=== PATIENT | male | born 1995 ===

== ENCOUNTER 2017-10-21 01:22 | Emergency (ER) | payer SELFPAY ==
[~2017-10-21] VITALS: Ht 180.3 cm; Wt 125.0 kg
[2017-10-21 01:43] VITALS: BP 161/91; PULSE 95; RESP 14; TEMP 98.7; O2SAT 98
[2017-10-21] MEDS ORDERED: HYDR12.57 PO (01:58)
[2017-10-21] MEDS ORDERED: NIFE10CA PO (01:58)
[2017-10-21] MEDS ORDERED: LOSA25TA PO (01:58)
--- NOTE | 2017-10-21 01:59 | PD ---
HPI Chief Complaint: Skin Problem Time Seen by Provider: 01:51 Travel History International Travel<30 days: No Contact w/Intl Traveler<30days: No Traveled to known affect area: No History of Present Illness HPI 21-year-old male presents to emergency department for evaluation of the superficial lacerations sustained to the distal right second digit yesterday. The area is not bleeding. There is no pain. He is curious as to how he should take care of this. He has no other symptoms to report. History Past Medical Histgory Medical History: Denies Significant Hx Past Surgical History Surgical History: No Previous Surgery Social History Alcohol Use: Yes Tobacco Use: No Allergies-Medications (Allergen,Severity, Reaction): Coded Allergies: No Known Allergies (Unverified , 10/21/17) Reported Meds & Prescriptions Reported Meds & Active Scripts Active Reported Nifedipine 10 Mg Cap 10 Mg PO QID Losartan (Losartan Potassium) 25 Mg Tab 12.5 Mg PO DAILY Hydrochlorothiazide 12.5 Mg Cap 12.5 Mg PO BID Review of Systems Except as stated in HPI: all other systems reviewed are Neg Physical Exam Narrative GENERAL: Well-nourished, well-developed male patient in no acute distress. SKIN: Focused skin assessment warm/dry. Less than 1 cm very superficial laceration to the distal aspect of the right second digit lateral to the nail bed. No bleeding. No erythema or edema. HEAD: Normocephalic. EYES: No scleral icterus. No injection or drainage. NECK: Supple, trachea midline. No JVD or lymphadenopathy. CARDIOVASCULAR: Regular rate and rhythm without murmurs, gallops, or rubs. RESPIRATORY: Breath sounds equal bilaterally. No accessory muscle use. Data Data Last Documented VS Vital Signs Date Time Temp Pulse Resp B/P (MAP) Pulse Ox O2 Delivery O2 Flow Rate FiO2 10/21/17 01:43 98.7 95 14 161/91 (114) 98 Room Air [facility] Medical Screen Exam Complete: Yes Emergency Medical Condition: No Differential Diagnosis superficial cut of right second digit Narrative Course 21-year-old male presents to the emergency department for evaluation of laceration to the right second digit. This is superficial and minimal. It does not need any emergent intervention. I have encouraged the patient to wear Band-Aid if he would like it covered. At this time there are no urgent or emergent needs medical intervention identified. A medical screening exam was performed: At the time of evaluation the presenting medical condition was determined not to be of an emergent nature. The patient was given the option of receiving additional care, but declined. Patient was given options for additional community resources from which to obtain care. The Patient Has Been advised to seek medical attention for their presenting complaint. The patient has been advised to return to the ER at any time if an emergent condition develops. Primary Impression: Encounter for medical screening examination Condition: Stable Coco Hope Oct 21, 2017 01:59
== END 2017-10-21 02:00 | disposition left against medical advice (07) ==
LOC: NEPD 01:22
DX: S60.940A Unspecified superficial injury of right index finger, initial encounter (principal); X58.XXXA Exposure to other specified factors, initial encounter
CPT/HCPCS: 99282